=== PATIENT | female | born 1955 | race Caucasian/White ===

== ENCOUNTER 2019-02-08 03:15 | Emergency (ER) | payer OTHER ==
[~2019-02-08] VITALS: Ht 165.1 cm; Wt 89.4 kg
[~2019-02-08 03:15] MED LIST: ADVIL200 MG PO; ALER-CAP25 MG PO; AMARYL2 MG PO; AMBIEN5 MG PO; ASPIR 8181 MG PO; CALCIO DEL MAR500 MG PO; CALCIUM500 M1 PO; CYCLOBENZAPRINE10 MG PO; FLEXERIL10 MG PO; FRUITY CHEWS1 EACH PO; GABAPENTIN300 MG PO; GLIMEPIRIDE2 MG PO; GLUCOPHAGE1000 MG PO; GLUCOPHAGE850 MG PO; IBUPROFEN200 MG PO; LISINOPRIL10 MG PO; LOVASTATIN10 MG PO; MOTRIN IB200 MG PO; MOTRIN800 MG PO; NEXIUM40 MG PO; NORCO 5-325 TA1 EACH PO; PERCOCET 5-3251 EACH PO; PRILOSEC20 MG PO; PROTONIX40 MG PO; SLEEP AID25 M1 PO; TUMS ULTRA ST1177 MG PO; VICTOZA 2-0.6 MG/0.1; ZYRTEC10 MG PO; [UNRECOGNIZED DRUG - OTHER] PO
--- OUTSIDE RECORDS SUMMARY | 2019-02-08 03:18 | XMS ---
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 Radha VISIT COUNT (12 MO.) 2 [facility] TOTAL 2 NOTE: Visits indicate total known visits. 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
[2019-02-08] MEDS ORDERED: CARVEDILOL12.5 MG PO (03:49)
[2019-02-08] MEDS ORDERED: TRADJENTA5 MG PO ×2 (03:49→03:58)
[2019-02-08] MEDS ORDERED: IRBESARTAN150 MG PO (03:49)
[2019-02-08] MEDS ORDERED: SPIRONOLACTONE25 MG PO (03:50)
[2019-02-08] MEDS ORDERED: XARELTO20 MG PO (03:58)
[2019-02-08] MEDS ORDERED: MAGNESIUM500 MG PO (04:01)
[2019-02-08] MEDS ORDERED: MELATONIN5 M2 PO (04:01)
[2019-02-08] MEDS ORDERED: MILK THISTLE500 MG PO (04:02)
[2019-02-08] MEDS ORDERED: VITAMIN B COMP1 EACH PO (04:03)
[2019-02-08] MEDS ORDERED: XANAX0.5 MG PO (08:34)
--- NOTE | 2019-02-08 13:55 | EKG ---
[facility] [address] [facility] [address] [facility] [place] [address] Signed Sinus rhythm with 1st degree AV block with occasional premature ventricular complexes Low voltage QRS Nonspecific T wave abnormality Abnormal ECG When compared with ECG of 03-MAY-2018 05:22, premature ventricular complexes are now present Nonspecific T wave abnormality, worse in Inferior leads Nonspecific T wave abnormality now evident in Anterolateral leads Confirmed by MINESH PERALTA DO ([id number]) on 02/08/2019 1:55:33 PM Electronically Signed By: MINESH PERALTA DO 02/08/19 1355 PATIENT NAME: JOEL CORTES Electrocardiogram DATE OF : 53 PHYSICIAN: MINESH PERALTA DO REPORT #: [id number] REPORT IS CONFIDENTIAL AND NOT TO BE RELEASED WITHOUT AUTHORIZATION
== END 2019-02-08 08:59 | disposition home or self-care (01) ==
LOC: ED 03:15
DX: R07.9 Chest pain, unspecified (principal); F41.9 Anxiety disorder, unspecified; E11.9 Type 2 diabetes mellitus without complications; I10 Essential (primary) hypertension; Z85.828 Personal history of other malignant neoplasm of skin; Z88.5 Allergy status to narcotic agent; Z91.041 Radiographic dye allergy status; Z88.8 Allergy status to other drugs, medicaments and biological substances; Z79.899 Other long term (current) drug therapy; Z79.84 Long term (current) use of oral hypoglycemic drugs
CPT/HCPCS: 71045; 80053; 83735; 84484; 85025; 85610; 93005; 93010; 99285-25